=== PATIENT | female | born 1940 | race Caucasian/White ===

== ENCOUNTER 2017-03-10 13:12 | Outpatient (CLI) | payer OTHER ==
[2017-02-15 03:30] VITALS: BP 154/58
[2017-03-10 13:44] LABS: MEAN CORPUSCULAR HEMOGLOBIN 32.1 pg (28.0-34.0); MEAN CORPUSCULAR VOLUME 97.9 fl (80.0-100.0)
[2017-03-10 14:07] LABS: eGFR (African) > 60; eGFR (Non-African) > 60
--- NOTE | 2017-03-10 14:21 | Diagnostic Imaging Report ---
SILKE PUENTE [facility] [address] [facility] [address] [address] Report Submission Date: Mar 10, 2017 2:03:52 PM BATCH BLENDER Patient Study Name: SHAN TRUJILLO Date: Mar 10, 2017 1:43:50 PM BATCH BLENDER Modality Type: CR Gender: F Description: SHOULDER : 38 Institution: [facility] Physician: SILKE PUENTE Examination: Plain film shoulder History: Discomfort Comparison exams: None provided Findings: 2 views of the shoulder demonstrate normal cortical margins. No evidence for fracture or dislocation. Mild acromioclavicular joint degenerative spurring. Axillary surgical clips. No other soft tissue abnormality Impression: Acromioclavicular joint degenerative spurring. No evidence for fracture or dislocation. Electronically signed on Mar 10, 2017 2:03:52 PM BATCH BLENDER by: Fletcher CHEEMA
--- NOTE | 2017-03-10 14:21 | Diagnostic Imaging Report ---
SILKE PUENTE [facility] [address] [facility] [address] [address] Report Submission Date: Mar 10, 2017 2:07:21 PM CUSTOMER LIAISON Patient Study Name: SHAN TRUJILLO Date: Mar 10, 2017 1:36:56 PM CUSTOMER LIAISON Modality Type: CR Gender: F Description: CHEST : 38 Institution: [facility] Physician: SILKE PUENTE Examination: Plain film ribs History: Discomfort Findings: 5 views of the ribs demonstrates normal cortical margins. No fracture or dislocation. Underlying parenchymal without abnormality. Left axillary surgical clips. Impression: No rib fracture/abnormality. Electronically signed on Mar 10, 2017 2:07:21 PM CUSTOMER LIAISON by: Fletcher CHEEMA
== END 2017-03-10 13:13 ==
LOC: LAB 13:12
PROVIDERS: ATTEND Family Medicine
DX: R07.81 Pleurodynia (principal); M25.512 Pain in left shoulder; G89.29 Other chronic pain; Z00.00 Encounter for general adult medical examination without abnormal findings
CPT/HCPCS: 36415; 71110; 73030; 80053; 80061; 83036; 85027

== ENCOUNTER 2017-09-30 08:49 | Emergency (ER) | payer OTHER ==
--- NOTE | 2017-09-30 09:08 | ED Physician Documentation ---
Shoulder Injury/Pain - HISTORIAN Historian: patient - HPI Stated Complaint: shoulder pain Chief Complaint: Upper Extremity Injury Onset: days ago (3) Where: home Severity: mild Pain: persistent Context: denies: fall, direct blow, dislocated raising arm Associated Symptoms: denies: weakness, bruising, tingling, unable to move shoulder Further Comments: yes (She has severe lympedema in the left arm and then left shoulder pain which she reports has happened in the past. She denies any injury and describes the pain and muscle pain as in the past. She states what she was "treated with last time worked perfect so I would like that" She denies any decrease in her ROM (which is altered due to the lymphedema) She has no decrease in sensation) - ROS CONST: no problems CVS/RESP: none GI/: denies: nausea, vomiting, abdominal pain MS/SKIN/LYMPH: neck pain (muscle ) NEURO: denies: headache - PAST HX Past History: other (breast cancer ) Immunizations: UTD Allergies/Adverse Reactions: Allergies Allergy/AdvReac Type Severity Reaction Status Date / Time amoxicillin Allergy Intermediate Hives Verified 09/30/17 09:08 - SOCIAL HX Smoking History: non-smoker Alcohol Use: none Drug Use: none - FAMILY HX Family History: none - VITAL SIGNS Vital Signs: Vital Signs Temp Pulse Resp BP Pulse Ox 97.7 F 67 14 126/58 97 09/30/17 08:55 09/30/17 08:55 09/30/17 08:55 09/30/17 08:55 09/30/17 08:55 - REVIEWED ASSESSMENT Nursing Assessment Reviewed: Yes Vitals Reviewed: Yes ED Results Lab/Radiology - Orders Orders: ED Orders Category Date Time Status Ketorolac Tromethamine [Toradol] Med 09/30/17 09:20 Discontinued 60 mg .ROUTE .STK-MED ONE Ketorolac Tromethamine [Toradol] Med 09/30/17 09:19 Discontinued 60 mg IM NOW ONE Orphenadrine Citrate [Norflex] Med 09/30/17 09:19 Discontinued 60 mg IM NOW ONE Shoulder Injury Physical Exam - Physical Exam General Appearance: no acute distress, alert Shoulder: no acute distress, soft-tissue tenderness, limited ROM (due to lympedema ). No: swelling, deformity, clavicular deformity Upper Extremity: no injury below shoulder, other (pain with muscle palpation on right upper back and neck area. Tight muscle noted with palpation. Arm sleeve in place ) Neuro: sensation nml, motor nml Vascular: no vascular compromise, motor nml, sensation nml Skin: warm/dry, normal color Respiratory: chest non-tender, no ecchymosis, breath sounds nml, no resp. distress, heart sounds nml Abdomen: soft, no distension Discharge Clincal Impression: Muscle spasm Left shoulder pain Qualifiers: Chronicity: chronic Qualified Code(s): M25.512 - Pain in left shoulder Referrals: Primary Doctor,No [REFERRING] - 2 Days Additional Instructions: 1. Hydrocodone 5/325 mg take 1 by mouth every 12 hours as needed for pain 2. Cyclobenzaprine 5 mg take 1 by mouth every 12 hours as needed for pain 3. Tylenol or Ibuprofen as directed for mild pain 4. Ice/Heat 5. See PCP for continued shoulder pain 6. Return to ER for uncontrolled pain or other concerns Condition: Stable Disposition: 01 HOME, SELF-CARE Decision to Admit: NO Date of Decison to Admit: 09/30/17 Decision Time: 09:28
[2017-09-30] MEDS ORDERED: ORPHENADRINE CITRATE 60 MG/2ML IM ONE (09:19)
[2017-09-30] MEDS ORDERED: KETOROLAC TROMETHAMINE 60 MG/2 ML VIAL IM ONE (09:19)
[2017-09-30] MEDS ORDERED: KETOROLAC TROMETHAMINE 60 MG/2 ML VIAL ONE (09:20)
[2017-09-30 11:33] VITALS: BP 124/60
== END 2017-09-30 09:49 | disposition home or self-care (01) ==
LOC: ED 08:49
DX: M25.512 Pain in left shoulder (principal); M62.838 Other muscle spasm
CPT/HCPCS: 96374; 96375; J1885; J2360

== ENCOUNTER 2018-07-19 14:22 | Outpatient (CLI) | payer OTHER ==
--- NOTE | 2018-07-20 00:35 | Diagnostic Imaging Report ---
AIDA MIR [facility] [address] [facility] [address] Report Submission Date: July 19, 2018 4:31:23 PM CDT Patient Study Name: SHAN TRUJILLO Date: July 19, 2018 2:24:52 PM CDT Modality Type: DX Gender: F Description: CHEST 2VIEW : 38 Institution: [facility] Physician: AIDA MIR Chest, PA and lateral HISTORY Crackles FINDINGS Surgical clips are noted in the left axilla. There is no infiltrate, effusion or pneumothorax. Heart size, mediastinum and pulmonary vascularity are normal. There is calcification in the thoracic aorta. IMPRESSION No active pulmonary disease. Electronically signed on July 19, 2018 4:31:23 PM CDT by: Carlos CHEEMA
== END 2018-07-19 14:24 ==
LOC: RAD 14:22
PROVIDERS: ATTEND Family Medicine
DX: R05 Cough (principal)
CPT/HCPCS: 71046

== ENCOUNTER 2018-08-26 14:06 | Emergency (ER) | payer OTHER ==
--- NOTE | 2018-08-26 14:31 | ED Physician Documentation ---
Dizziness - HISTORIAN Historian: patient - HPI Chief Complaint: Dizziness Additional Information: Patient is a 78-year-old female who was in town to get her hair done and was sitting at [employer] eating when she suddenly became very dizzy and had to ask a stranger for help. She was brought in by [facility]. Dizziness is gone. She was treated for a sinus infection by PCP the end of June and was taking Claritin daily for fluid in her ears which was causing dizziness. She states she felt better and quit taking the Claritin. She has also been out of her blood pressure meds for 6 days but they are coming through the mail. Timing: sudden onset, gone now Severity: moderate (but resolved quickly) Associated Symptoms: roaring in ear, sense of spinning, light headedness Decreased Ability to Stand/ Walk: walks w/o assistance Usually: walks w/o assistance Worsened By: changing position, movement of head - ROS CONST: other (was treated for fluid in the ear) EYES/ENT: none GI/: none MS/SKIN/LYMPH: none NEURO/PSYCH: none CVS/RESP: none - PAST HX Past History: hypertension, other (GERD, Breast CA) Surgeries/Procedures: other (bladder prolapse, breast lumpectomy, knee arthroscopy) Immunizations: UTD Allergies/Adverse Reactions: Allergies Allergy/AdvReac Type Severity Reaction Status Date / Time amoxicillin Allergy Intermediate Hives Verified 08/26/18 14:24 Home Medications: Ambulatory Orders Medication Instructions Recorded Bisoprolol/Hydrochlorothiazide 1 each PO DAILY #5 tablet 08/26/18 [Bisoprolol-Hctz 5-6.25 mg Tab] - SOCIAL HX Smoking History: non-smoker Alcohol Use: none Drug Use: none - FAMILY HX Family History: none - VITAL SIGNS Vital Signs: Vital Signs Temp Pulse Resp BP Pulse Ox 124/60 09/30/17 11:28 - REVIEWED ASSESSMENTS Nursing Assessment Reviewed: Yes Vitals Reviewed: Yes Progress - Progress Progress: 15:20 discussed results of labs and CT with patient and daughter- pt is feeling much better since arrival- no complaints ED Results Lab/Radiology - Lab Results Lab Results: Orthostatics- negative - Radiology Radiology Impressions: Head CT without contrast Clinical history: Dizziness. Hypertension. Visual disturbance. Technique: CT examination the brain is performed in contiguous axial slices with sagittal and coronal reconstructions. Findings: The 4th ventricle lies in a normal midline position. The ventricles and sulci are prominent consistent with the patient's age. Intracranial atherosclerosis is evident. Retention cyst is present in the right maxillary sinus. Visualized mastoid air cells are clear. Impression: 1. Atrophy. 2. Intracranial atherosclerosis. 3. No acute intracranial changes. - Orders Orders: ED Orders Category Date Time Status Continuous EKG monitoring Q30M Care 08/26/18 14:27 Ordered Continuous Pulse Oximetry Q30M Care 08/26/18 14:[address] IV Lock 1T Care 08/26/18 14:[address] BRAIN W/O CONTRAST Stat Exams 08/26/18 Ordered CBC/PLATELET/DIFF Routine Lab 08/26/18 14:27 Ordered CMP Routine Lab 08/26/18 14:27 Ordered TROPONIN I Stat Lab 08/26/18 14:27 Ordered EKG WITH COMPARISON Stat Ther 08/26/18 14:27 Ordered Dizziness Physical Exam - Physical Exam General Appearance: no distress EENT: eye inspection normal, ENT inspection normal, pharynx normal, no signs of dehydration, EVELINA Neck: normal inspection, supple Respiratory: no respiratory distress, breath sounds nml CVS: reg rate & rhythm, heart sounds normal, equal pulses, no murmur Abdomen: soft, normal bowel sounds Skin: warm/dry, normal color Neuro: nml orientation, nml speech, nml cognition, mood/affect nml Extremities: non-tender, normal range of motion Cranial: nml as tested, no evidence of acute CVA Cerebellar: nml as tested, nml gait Sensorimotor: motor nml, sensation nml Discharge Clincal Impression: Fluid collection of middle ear, Dizziness Prescriptions: Bisoprolol/Hydrochlorothiazide [Bisoprolol-Hctz 5-6.25 mg Tab] 1 each PO DAILY #5 tablet Referrals: Chaya Martinez MD [Primary Care Provider] - 2 Days Additional Instructions: Start taking your Claritin again daily for fluid in the left ear May also try Meclizine 25mg 1 tab. by mouth every 6 hrs as needed for dizziness Script for 5 pills of blood pressure med sent to [facility] (pt should be receiving her pills in the mail) Follow up with PCP next week for re-evaluation Return to ER as needed Condition: Good Disposition: 01 HOME, SELF-CARE Decision to Admit: NO Decision Time: 15:22
[2018-08-26 14:44] LABS: BASOPHILS % 0.3 % (0.0-1.5); NEUTROPHILS # 2.7 # k/uL (1.4-7.7)
[2018-08-26 14:55] LABS: eGFR (Non-African) > 60
--- NOTE | 2018-08-26 15:06 | Diagnostic Imaging Report ---
MICAH GARCIA [facility] [address] [facility] [address] [address] Report Submission Date: Aug 26, 2018 3:00:56 PM CDT Patient Study Name: SHAN TRUJILLO Date: Aug 26, 2018 2:44:06 PM CDT Modality Type: CT\SR Gender: F Description: : Institution: [facility] Physician: MICAH GARCIA Head CT without contrast Clinical history: Dizziness. Hypertension. Visual disturbance. Technique: CT examination the brain is performed in contiguous axial slices with sagittal and coronal reconstructions. Findings: The 4th ventricle lies in a normal midline position. The ventricles and sulci are prominent consistent with the patient's age. Intracranial atherosclerosis is evident. Retention cyst is present in the right maxillary sinus. Visualized mastoid air cells are clear. Impression: 1. Atrophy. 2. Intracranial atherosclerosis. 3. No acute intracranial changes. Electronically signed on Aug 26, 2018 3:00:56 PM CDT by: Virgil CHEEMA
[2018-08-26 15:36] VITALS: BP 170/76
== END 2018-08-26 15:37 | disposition home or self-care (01) ==
LOC: ED 14:06
DX: H74.8X2 Other specified disorders of left middle ear and mastoid (principal); R42 Dizziness and giddiness
CPT/HCPCS: 70450; 80053; 84484; 85025; 99282; 99283